=== PATIENT | male | born 1975 | race Caucasian/White ===

== ENCOUNTER 2025-06-24 13:31 | Inpatient (IN) | payer MEDICAID ==
[~2025-06-24] VITALS: Ht 170.2 cm; Wt 89.1 kg
[2025-06-24] VITALS (30 sets, daily range): BP systolic 77–136; BP diastolic 58–89; PULSE 65–97; RESP 13–21; TEMP 36.4–37.0296; O2SAT 100
[2025-06-24] MEDS ORDERED: NOREPINEPHRINE 8MG/250ML PMX 250 ML IV ONE ×2 (13:37→13:57)
[2025-06-24] MEDS: SODIUM CHLORIDE 0.9% 500 ML IV ONE (13:39)
[2025-06-24] MEDS: HEPARIN 5000 UNITS/ML VIAL IV ONE (13:39)
[2025-06-24] MEDS: ASPIRIN 325MG TABLET PO ONE (13:42)
[2025-06-24] MEDS ORDERED: PROPOFOL 10MG/ML 100ML 100 ML IV SCH (13:45)
[2025-06-24] MEDS ORDERED: ROCURONIUM BROMIDE 10MG/ML VIAL 5ML IV ONE (13:45)
[2025-06-24] MEDS ORDERED: ETOMIDATE 2MG/ML 10ML VIAL IV ONE (13:45)
[2025-06-24] MEDS ORDERED: IODIXANOL 320 MG/ML 150ML BOTTLE IV ONE (13:50)
[2025-06-24] MEDS ORDERED: MIDAZOLAM HCL 2 MG/2 ML VIAL ONE ×2 (13:51→15:28)
[2025-06-24] MEDS ORDERED: LIDOCAINE HCL 1% 20ML VIAL ONE (13:51)
[2025-06-24] MEDS ORDERED: FENTANYL CITRATE/PF 50MCG/ML 2ML VIAL ONE (13:51)
[2025-06-24] MEDS ORDERED: HEPARIN 1000 UNITS/ML 10ML ONE ×2 (13:52→14:41)
[2025-06-24] MEDS ORDERED: DOPAMINE 400MG/250ML PREMIX 250 ML IV ONE (13:57)
[2025-06-24] MEDS ORDERED: EPINEPHRINE 0.1MG/ML (1:10,000) 10ML SYR ONE (13:58)
[2025-06-24] MEDS ORDERED: MIDAZOLAM HCL 2 MG/2 ML VIAL IV ONE (14:00)
[2025-06-24 14:09] LABS: BASOPHILS % 0.5 % (0.0-2.0); EOSINOPHILS % 0.8 % (0.0-5.0); HEMATOCRIT. 42.9 % (42.0-52.0); HEMOGLOBIN. 13.9 g/dL (14.0-18.0); LYMPHOCYTES % 18.2 % (20.0-50.0); MEAN PLATELET VOLUME 8.6 fl (7.4-10.4); MONOCYTES % 4.6 % (2.0-8.0); NEUTROPHILS % 75.9 % (40.0-76.0); PLATELET 321 x1000/uL (130-400); RED BLOOD CELL COUNT 5.29 mill/uL (4.7-6.1); RED CELL DISTRIBUTION WIDTH 14.8 % (11.6-14.6)
[2025-06-24 14:17] LABS: CREATININE 1.4 mg/dL (0.6-1.3)
[2025-06-24 14:18] LABS: UREA NITROGEN BLOOD 11 mg/dL (9-23)
[2025-06-24 14:19] LABS: ASPARTATE AMINOTRANSFERASE 21 IU/L (<34)
[2025-06-24 14:20] LABS: BILIRUBIN DIRECT 0.1 mg/dL (<=3.0); BILIRUBIN TOTAL 0.4 mg/dL (0.1-1.0); PROTEIN TOTAL 7.0 g/dL (6.0-8.3)
[2025-06-24 14:29] LABS: TROPONIN I HIGH SENSITIVITY 255 ng/L (3.0-53)
[2025-06-24] MEDS ORDERED: DOCUSATE SODIUM 100MG CAPSULE PO PRN (14:30)
[2025-06-24] MEDS ORDERED: GUAIFENESIN 200MG/10ML SUGAR FREE UDC PO PRN (14:30)
[2025-06-24] MEDS ORDERED: ONDANSETRON HCL 4MG/2ML INJ IV PRN (14:30)
[2025-06-24] MEDS ORDERED: MAGNESIUM/ALUMINUM HYDROXIDE/SIMETHICONE 30ML UDC PO PRN (14:30)
[2025-06-24] MEDS ORDERED: SODIUM CHLORIDE 0.9% 1,000 ML IV ONE (14:30)
[2025-06-24] MEDS ORDERED: CLONIDINE 0.1MG TABLET PO PRN (14:30)
[2025-06-24] MEDS ORDERED: IPRATROPIUM/ALBUTEROL 0.5-3(2.5)MG/3ML NEB HHN PRN (14:30)
[2025-06-24] MEDS ORDERED: EPTIFIBATIDE 2 MG/ML 10ML VIAL IV ONE ×2 (14:36→20:45)
[2025-06-24] MEDS ORDERED: POTASSIUM CHLORIDE 20MEQ/PACKET NG SCH (14:45)
[2025-06-24] MEDS ORDERED: IODIXANOL 320MG/ML 100 ML BOTTLE IV ONE (14:53)
[2025-06-24] MEDS ORDERED: EPTIFIBATIDE 100 ML IV ONE (14:56)
[2025-06-24] MEDS ORDERED: NOREPINEPHRINE 8 MG in DEXT 5% WATER 242 ML IV PRN (15:00)
[2025-06-24] MEDS ORDERED: CLOPIDOGREL 75MG TABLET ONE (15:23)
[2025-06-24] MEDS ORDERED: ATROPINE SULFATE 1MG/10ML SYR IV PRN (15:30)
[2025-06-24] MEDS ORDERED: NOREPINEPHRINE 8MG/250ML PMX 250ML IV PRN (15:30)
[2025-06-24] MEDS: SODIUM CHLORIDE 0.45% 1,000 ML IV ONE (15:30)
[2025-06-24] MEDS: EPTIFIBATIDE 100 ML IV SCH ×2 (16:00→21:15)
[2025-06-24] MEDS ORDERED: DEXMEDETOMIDINE 250 ML IV PRN (17:30)
[2025-06-24 17:33] LABS: TROPONIN I HIGH SENSITIVITY 38487 ng/L (3.0-53)
[2025-06-24 17:34] LABS: INR 1.1
[2025-06-24] MEDS ORDERED: PNEUMOCOCCAL 20-VAL CONJ-DIP CRM 0.5ML IM ONE (17:45)
[2025-06-24] MEDS: PROPOFOL 10MG/ML 100ML 100 ML IV PRN (17:58)
[2025-06-24 18:15] LABS: CLARITY URINE CLEAR (CLEAR); COLOR URINE YELLOW (YELLOW); GLUCOSE URINE NEGATIVE (NEGATIVE); KETONES URINE NEGATIVE (NEGATIVE); LEUKOCYTE ESTERASE URINE NEGATIVE (NEGATIVE); NITRITE URINE NEGATIVE (NEGATIVE); OCCULT BLOOD URINE NEGATIVE (NEGATIVE); PH URINE 8.0 (4.5-8.0); PROTEIN URINE NEGATIVE (NEGATIVE); SPECIFIC GRAVITY URINE 1.049 (1.005-1.030); UROBILINOGEN URINE 0.2 E.U./dL (0.2-1.0)
[2025-06-24 18:31] LABS: *AMPHETAMINES SCREEN URINE PRESUMPTIVE POSITIVE (NEGATIVE); *BARBITURATES SCREEN URINE NEGATIVE (NEGATIVE); *BENZODIAZEPINES SCREEN URINE PRESUMPTIVE POSITIVE (NEGATIVE)
[2025-06-24 18:32] LABS: *COCAINE SCREEN URINE NEGATIVE (NEGATIVE); CANNABINOID URINE SCREEN NEGATIVE (NEGATIVE); ECSTASY MDMA SCREEN URINE NEGATIVE (NEGATIVE); METHADONE URINE SCREEN NEGATIVE (NEGATIVE); OPIATES URINE SCREEN NEGATIVE (NEGATIVE); PHENCYCLIDINE URINE SCREEN NEGATIVE (NEGATIVE)
[2025-06-24] MEDS: FENTANYL 2500MCG/250ML PMX 250 ML IV PRN (18:50)
[2025-06-24] MEDS: MIDAZOLAM 100MG/100ML PMX 100 ML IV PRN (18:51)
[2025-06-24 20:13] LABS: TROPONIN I HIGH SENSITIVITY 44238 ng/L (3.0-53)
[2025-06-24] MEDS: POTASSIUM CHLORIDE 20MEQ/PACKET NG SCH (20:18)
[2025-06-24] MEDS: ATORVASTATIN CALCIUM 40MG TABLET PO SCH (20:18)
[2025-06-24] MEDS: PANTOPRAZOLE SODIUM 40 MG/VIAL IV SCH (20:18)
[2025-06-24] MEDS: CARVEDILOL 3.125 MG TABLET PO SCH (20:20)
[2025-06-24 20:22] LABS: BG BASE EXCESS 1.7 mmol/L (-2.0-3.0); BG CARBOXYHEMOGLOBIN 0.8 % (0.5-1.5); BG DEOXYHEMOGLOBIN 1.2 % (0.0-5.0); BG FRACTION INSPIRED OXYGEN 40; BG HCO3 ACT 26.7 mmol/L (21.0-28.0); BG METHEMOGLOBIN 0.1 % (0.5-1.5); BG OXYGEN SATURATION 98.8 % (94.0-98.0); BG OXYHEMOGLOBIN 97.9 % (94.0-98.0); BG PCO2 43.3 mmHg (35.0-48.0); BG PEEP (cmH2O) 5.0 cmH2O; BG PH 7.408 (7.350-7.450); BG PO2 133.0 mmHg (83.0-108.0); BG SAMPLE SITE LEFT BRACHIAL; BG TIDAL VOLUME(mL) 500.0 mL; BG TOTAL HEMOGLOBIN 13.3 g/dL (13.5-17.5); BG TOTAL RESPIRATORY RATE 18 b/min; BG VENT MODE VENT - AC; BG VENT RATE 18.0 set
[2025-06-24 20:49] LABS: HEPATITIS C AB NON REACTIVE (Neg) (Negative)
[2025-06-24] MEDS ORDERED: ATORVASTATIN CALCIUM 40MG TABLET PO SCH (21:00)
[2025-06-25] VITALS (70 sets, daily range): BP systolic 78–132; BP diastolic 59–85; PULSE 62–95; RESP 0–19; TEMP 36.4–37.7; O2SAT 99–100
[2025-06-25 01:39] LABS: TROPONIN I HIGH SENSITIVITY 66355 ng/L (3.0-53)
[2025-06-25] MEDS: CEFAZOLIN 1000MG PREMIX 50 ML IV SCH (03:22)
[2025-06-25 05:32] LABS: BASOPHILS % 0.3 % (0.0-2.0); EOSINOPHILS % 1.2 % (0.0-5.0); HEMATOCRIT. 35.3 % (42.0-52.0); HEMOGLOBIN. 11.6 g/dL (14.0-18.0); LYMPHOCYTES % 13.2 % (20.0-50.0); MEAN PLATELET VOLUME 8.7 fl (7.4-10.4); MONOCYTES % 6.6 % (2.0-8.0); NEUTROPHILS % 78.7 % (40.0-76.0); PLATELET 264 x1000/uL (130-400); RED BLOOD CELL COUNT 4.32 mill/uL (4.7-6.1); RED CELL DISTRIBUTION WIDTH 15.1 % (11.6-14.6)
[2025-06-25 05:41] LABS: CREATININE 0.8 mg/dL (0.6-1.3)
[2025-06-25 05:42] LABS: LDL CHOLESTEROL 81 mg/dL (5-100); TRIGLYCERIDE 106 mg/dL (0-150); UREA NITROGEN BLOOD 12 mg/dL (9-23)
[2025-06-25 05:44] LABS: PHOSPHORUS 3.0 mg/dL (2.5-4.9); T4 FREE 1.34 ng/dL (0.89-1.76)
[2025-06-25 06:06] LABS: TROPONIN I HIGH SENSITIVITY 65920 ng/L (3.0-53)
[2025-06-25] MEDS: PROPOFOL 10MG/ML 100ML 100 ML IV PRN (07:39)
[2025-06-25] MEDS: ASPIRIN 81MG EC TABLET PO SCH (08:54)
[2025-06-25] MEDS: CLOPIDOGREL 75MG TABLET PO SCH (08:55)
[2025-06-25] MEDS ORDERED: ASPIRIN 81MG TABLET PO SCH (09:00)
[2025-06-25] MEDS ORDERED: CLOPIDOGREL 75MG TABLET PO SCH (09:00)
[2025-06-25] MEDS ORDERED: LIDOCAINE HCL 1% 10 MG/ML 10ML VIAL ONE (10:11)
[2025-06-25] MEDS: AMIODARONE 150MG/100ML D5W 100 ML IV NR (12:24)
[2025-06-25] MEDS: ACETAMINOPHEN 325MG TABLET PO PRN (23:44)
[2025-06-26] VITALS (94 sets, daily range): BP systolic 74–138; BP diastolic 27–112; PULSE 68–89; RESP 0–30; TEMP 36.8–37.5; O2SAT 94–100
[2025-06-26] MEDS: PROPOFOL 10MG/ML 100ML 100 ML IV PRN (01:33)
[2025-06-26 05:35] LABS: BASOPHILS % 0.3 % (0.0-2.0); EOSINOPHILS % 1.8 % (0.0-5.0); HEMATOCRIT. 38.7 % (42.0-52.0); HEMOGLOBIN. 12.4 g/dL (14.0-18.0); LYMPHOCYTES % 18.9 % (20.0-50.0); MEAN PLATELET VOLUME 8.7 fl (7.4-10.4); MONOCYTES % 10.9 % (2.0-8.0); NEUTROPHILS % 68.1 % (40.0-76.0); PLATELET 222 x1000/uL (130-400); RED BLOOD CELL COUNT 4.74 mill/uL (4.7-6.1); RED CELL DISTRIBUTION WIDTH 15.4 % (11.6-14.6)
[2025-06-26 05:43] LABS: CREATININE 0.8 mg/dL (0.6-1.3); TRIGLYCERIDE 124 mg/dL (0-150)
[2025-06-26 05:44] LABS: UREA NITROGEN BLOOD 11 mg/dL (9-23)
[2025-06-26 09:38] LABS: BG BASE EXCESS 1.1 mmol/L (-2.0-3.0); BG CARBOXYHEMOGLOBIN 0.6 % (0.5-1.5); BG DEOXYHEMOGLOBIN 2.7 % (0.0-5.0); BG FRACTION INSPIRED OXYGEN 30; BG HCO3 ACT 25.4 mmol/L (21.0-28.0); BG METHEMOGLOBIN 0.3 % (0.5-1.5); BG OXYGEN SATURATION 97.3 % (94.0-98.0); BG OXYHEMOGLOBIN 96.4 % (94.0-98.0); BG PCO2 38.9 mmHg (35.0-48.0); BG PEEP (cmH2O) 5.0 cmH2O; BG PH 7.432 (7.350-7.450); BG PO2 94.4 mmHg (83.0-108.0); BG SAMPLE SITE RIGHT BRACHIAL; BG TIDAL VOLUME(mL) 500.0 mL; BG TOTAL HEMOGLOBIN 12.5 g/dL (13.5-17.5); BG VENT MODE VENT - AC; BG VENT RATE 18.0 set
[2025-06-26 10:37] LABS: BG BASE EXCESS 2.9 mmol/L (-2.0-3.0); BG CARBOXYHEMOGLOBIN 0.7 % (0.5-1.5); BG DEOXYHEMOGLOBIN 3.7 % (0.0-5.0); BG FRACTION INSPIRED OXYGEN 30; BG HCO3 ACT 24.7 mmol/L (21.0-28.0); BG METHEMOGLOBIN 0.3 % (0.5-1.5); BG OXYGEN SATURATION 96.3 % (94.0-98.0); BG OXYHEMOGLOBIN 95.3 % (94.0-98.0); BG PCO2 30.0 mmHg (35.0-48.0); BG PEEP (cmH2O) 5.0 cmH2O; BG PH 7.534 (7.350-7.450); BG PO2 76.8 mmHg (83.0-108.0); BG SAMPLE SITE RIGHT BRACHIAL; BG TOTAL HEMOGLOBIN 14.1 g/dL (13.5-17.5); BG VENT MODE VENT - CPAP
[2025-06-26] MEDS: ACETAMINOPHEN 325MG TABLET PO PRN (13:38)
[2025-06-26] MEDS: KETOROLAC 15MG/ML VIAL IV NR (18:05)
[2025-06-27] VITALS (54 sets, daily range): BP systolic 83–126; BP diastolic 53–92; PULSE 64–89; RESP 0–25; TEMP 36.7–37.2; O2SAT 93–100
[2025-06-27] MEDS: ACETAMINOPHEN 325MG TABLET PO PRN (04:52)
[2025-06-27 06:21] LABS: BASOPHILS % 0.5 % (0.0-2.0); EOSINOPHILS % 1.7 % (0.0-5.0); HEMATOCRIT. 34.4 % (42.0-52.0); HEMOGLOBIN. 11.3 g/dL (14.0-18.0); LYMPHOCYTES % 13.5 % (20.0-50.0); MEAN PLATELET VOLUME 9.0 fl (7.4-10.4); MONOCYTES % 8.5 % (2.0-8.0); NEUTROPHILS % 75.8 % (40.0-76.0); PLATELET 221 x1000/uL (130-400); RED BLOOD CELL COUNT 4.22 mill/uL (4.7-6.1); RED CELL DISTRIBUTION WIDTH 14.7 % (11.6-14.6)
[2025-06-27 06:51] LABS: CREATININE 0.7 mg/dL (0.6-1.3); UREA NITROGEN BLOOD 15 mg/dL (9-23)
[2025-06-28] VITALS: BP 114/72; PULSE 72; RESP 14; TEMP 37.8; O2SAT 96
[2025-06-28 04:00] VITALS: BP 106/72; PULSE 76; RESP 18; TEMP 37.2; O2SAT 95
[2025-06-28 08:00] VITALS: BP 123/79; PULSE 72; RESP 18; TEMP 36.8; O2SAT 96
[2025-06-28 10:48] LABS: BASOPHILS % 0.5 % (0.0-2.0); EOSINOPHILS % 1.3 % (0.0-5.0); HEMATOCRIT. 34.4 % (42.0-52.0); HEMOGLOBIN. 11.3 g/dL (14.0-18.0); LYMPHOCYTES % 12.6 % (20.0-50.0); MEAN PLATELET VOLUME 8.8 fl (7.4-10.4); MONOCYTES % 8.0 % (2.0-8.0); NEUTROPHILS % 77.6 % (40.0-76.0); PLATELET 261 x1000/uL (130-400); RED BLOOD CELL COUNT 4.26 mill/uL (4.7-6.1); RED CELL DISTRIBUTION WIDTH 14.3 % (11.6-14.6)
[2025-06-28 11:04] LABS: CREATININE 0.7 mg/dL (0.6-1.3); UREA NITROGEN BLOOD 10 mg/dL (9-23)
[2025-06-28] MEDS ORDERED: COR3 PO (11:46)
[2025-06-28] MEDS ORDERED: LIP40 PO (11:46)
[2025-06-28] MEDS ORDERED: CLOP-31 PO (11:46)
[2025-06-28] MEDS ORDERED: ASPI-1406 PO (11:46)
[2025-06-28 11:49] VITALS: BP 113/77; PULSE 73; RESP 19
[2025-06-28 12:00] VITALS: BP 113/77; PULSE 70; RESP 17; TEMP 37.1; O2SAT 96
== END 2025-06-28 14:25 | disposition home or self-care (01) | DRG 174 ==
LOC: ER 13:31 → EDBEDREQ 14:07 → EDBEDREQTM 14:07 → MICUSO 14:27 → CVICU 16:13 → 3WST 06-27 22:50
PROVIDERS: ADMIT Internal Medicine; ATTEND Internal Medicine
PROC: 4A023N7 Measurement of Cardiac Sampling and Pressure, Left Heart, Percutaneous Approach (ICD-10-PCS; principal; 2025-06-24)
PROC: 027034Z Dilation of Coronary Artery, One Artery with Drug-eluting Intraluminal Device, Percutaneous Approach (ICD-10-PCS; 2025-06-24)
PROC: 02C13ZZ Extirpation of Matter from Coronary Artery, Two Arteries, Percutaneous Approach (ICD-10-PCS; 2025-06-24)
PROC: B2111ZZ Fluoroscopy of Multiple Coronary Arteries using Low Osmolar Contrast (ICD-10-PCS; 2025-06-24)
PROC: B2151ZZ Fluoroscopy of Left Heart using Low Osmolar Contrast (ICD-10-PCS; 2025-06-24)
PROC: B241ZZ3 Ultrasonography of Multiple Coronary Arteries, Intravascular (ICD-10-PCS; 2025-06-24)
PROC: 0BH17EZ Insertion of Endotracheal Airway into Trachea, Via Natural or Artificial Opening (ICD-10-PCS; 2025-06-24)
PROC: 5A1945Z Respiratory Ventilation, 24-96 Consecutive Hours (ICD-10-PCS; 2025-06-24)
PROC: 05HY33Z Insertion of Infusion Device into Upper Vein, Percutaneous Approach (ICD-10-PCS; 2025-06-25)
DX: I21.19 ST elevation (STEMI) myocardial infarction involving other coronary artery of inferior wall (principal); J96.01 Acute respiratory failure with hypoxia; G92.8 Other toxic encephalopathy; N17.9 Acute kidney failure, unspecified; E87.6 Hypokalemia; D72.829 Elevated white blood cell count, unspecified; I47.20 Ventricular tachycardia, unspecified; E87.8 Other disorders of electrolyte and fluid balance, not elsewhere classified; F19.10 Other psychoactive substance abuse, uncomplicated; F17.210 Nicotine dependence, cigarettes, uncomplicated; I25.10 Atherosclerotic heart disease of native coronary artery without angina pectoris; Z79.02 Long term (current) use of antithrombotics/antiplatelets; Z79.899 Other long term (current) drug therapy; Z79.82 Long term (current) use of aspirin; Z83.3 Family history of diabetes mellitus
CPT/HCPCS: 31720; 36415; 36573; 36600; 37184; 71045; 80048; 80061; 80076; 80305; 81003; 82375; 82550; 82805; 82962; 83036; 83735; 83880; 84100; 84132; 84439; 84443; 84478; 84484; 85025; 85347; 86705; 86850; 86900; 87070; 87340; 92928; 92941; 92978; 93005; 93306; 93458; 94002; 94003; 94070; 94640; 94664; 96361; 96374; 98960; 99291; A4606; C1725; C1753; C1769; C1874; C1887; C1893; J0282; J0690; J1265; J1327; J1644; J1885; J2003; J2250; J2470; J2704; J3010; J3490; J7040; Q9967